=== PATIENT | male | born 2000 | race Caucasian/White ===

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

== ENCOUNTER 2021-02-17 06:22 | Emergency (ER) | payer BC ==
[~2021-02-17] VITALS: Ht 188 cm; Wt 81.5 kg
[2021-02-17] MEDS ORDERED: DIPH,PERTUSS(ACELL),TET VAC/PF 0.5 ML IM-VACC ONE ×2 (07:48→08:00)
[2021-02-17 07:50] VITALS: BP 138/89
[2021-02-17] MEDS ORDERED: BACITRACIN ZINC OINT 500U/GM, 0.9 GM ONE (07:52)
--- NOTE | 2021-02-17 07:55 | NUR ---
Vaccine give Tdap by Gisella Claros Rn all required info put in, cdc info provided to pt. EMT with wound care, bacitracin to abrasions. Pt to be dispo after wound care.
== END 2021-02-17 08:04 | disposition home or self-care (01) ==
LOC: ED 07:58
DX: S70.312A Abrasion, left thigh, initial encounter (principal); S70.311A Abrasion, right thigh, initial encounter; X58.XXXA Exposure to other specified factors, initial encounter; Y93.89 Activity, other specified; Y92.89 Other specified places as the place of occurrence of the external cause; Y99.8 Other external cause status
CPT/HCPCS: 90471; 90715; 99283